=== PATIENT | female | born 1960 | race Caucasian/White ===

== ENCOUNTER 2024-07-07 16:45 | Inpatient (IN) | payer OTHER ==
[2024-07-07 17:46] LABS: Absolute Basophils 0.1 K/uL (0-0.5); Absolute Eosinophils 0.2 K/uL (0-0.5); Absolute Lymphocytes (CBC) 2.1 K/uL (0.7-4.9); Absolute Monocytes 0.5 K/uL (0.1-1.3); Absolute Neutrophil 5.3 K/uL (1.8-8.0); Basophils % 0.6 % (0-1.3); Hematocrit 17.3 % (36.0-45.0); Lymphocytes % 25.7 % (15.3-44.8); MCHC 27.8 g/dL (32.0-36.0); MCV 53.9 fL (80-100); MPV 8.3 fL (7.6-11.3); Monocytes % 6.5 % (3.3-12.3); Neutrophils % 65.2 % (41.7-73.7); Nucleated Red Blood Cells % 0.2 % (0-0); Platelets 432 thou/uL (152-406); RBC Red Blood Cell Count 3.21 M/uL (3.86-4.86); Red Cell Distribution Width 21.2 % (12.1-15.2)
[2024-07-07 17:49] LABS: PT Prothrombin Time 11.6 SECONDS (9.4-12.5); Protime INR 1.11
[2024-07-07 17:50] LABS: Hemoglobin 4.8 g/dL (12.0-15.0)
[2024-07-07 18:02] LABS: ALT/SGPT 19 U/L (13-56); Albumin 3.4 g/dL (3.4-5.0); Albumin/Globulin Ratio 0.9 (1.1-1.8); Alkaline Phosphatase 106 U/L (45-117); Anion Gap 10.7 mEq/L (5.0-15.0); BUN Blood Urea Nitrogen 14 mg/dL (7-18); Bicarbonate 25 mEq/L (21-32); Bilirubin Total 0.4 mg/dL (0.2-1.0); Globulin 3.7 g/dL (2.3-3.5); Glomerular Filtration Rate 66 ml/min (=/>90); Glucose Level 105 mg/dL (74-106); NT PRO-BNP 89 pg/mL (<125); Potassium 3.7 mEq/L (3.5-5.1); Protein, Total 7.1 g/dL (6.4-8.2); Sodium Level 137 mEq/L (136-145); Troponin High Sensitivity 5.1 pg/mL (<58.9)
[2024-07-07 18:05] LABS: AST/SGOT < 10 U/L (15-37); Bilirubin Direct < 0.2 mg/dL (0-0.2); Bilirubin Indirect, Calculated 0.2 mg/dL (0.2-0.8)
[2024-07-07 18:58] LABS: Anisocytosis 1+; Blood Morphology Comment NOTED (NOT SEEN); Hypochromasia 3+; Microcytosis 3+; Platelet Estimate INCR; White Blood Cell Scan OK (OK)
[2024-07-07] MEDS ORDERED: NA CHLORIDE 0.9% 250 ML ONE (19:00)
[2024-07-08] MEDS ORDERED: NA CHLORIDE 0.9% 100 ML ONE ×2 (01:11→06:41)
[2024-07-08] MEDS ORDERED: ACETAMINOPHEN 500 MG TAB ONE (02:48)
[2024-07-08 03:57] LABS: Hematocrit 21.7 % (36.0-45.0); Hemoglobin 6.6 g/dL (12.0-15.0); MCHC 30.4 g/dL (32.0-36.0); MCV 62.7 fL (80-100); MPV 8.9 fL (7.6-11.3); Platelets 360 thou/uL (152-406); RBC Red Blood Cell Count 3.46 M/uL (3.86-4.86); Red Cell Distribution Width 32.9 % (12.1-15.2)
--- NOTE | 2024-07-08 08:37 | ER ---
Nurse's Notes [facility] Name: Aurora Hutson Age: 63 yrs Sex: Female : 1960 Arrival Date: 07/07/2024 Time: 16:45 Bed 17 Private MD: Diagnosis: Anemia, unspecified;Ankylosing spondylitis of unspecified sites in spine Presentation: 07/07 17:00 Chief complaint: Patient states: Fatigue since just before Boris. Abnormal HGB 5, ll1 sent in for further evaluation. Episodes of near syncope also. Coronavirus screen: Client denies travel out of the [place] in the last 14 days. At this time, the client does not indicate any symptoms associated with coronavirus-19. Ebola Screen: Patient denies travel to an Ebola-affected area in the 21 days before illness onset. Initial Sepsis Screen: Does the patient meet any 2 criteria? No. Patient's initial sepsis screen is negative. Does the patient have a suspected source of infection? No. Patient's initial sepsis screen is negative. Risk Assessment: Do you want to hurt yourself or someone else? Patient reports no desire to harm self or others. Onset of symptoms was May 29, 2024. 17:00 Method Of Arrival: Ambulatory ll1 17:00 Acuity: FLORA 2 ll1 Triage Assessment: 17:00 General: Appears uncomfortable, Behavior is calm, cooperative, appropriate for age, ll1 Reports fatigue for. Pain: Denies pain. Neuro: Reports weakness low HGB. Historical: - Allergies: 17:02 No Known Allergies; ll1 - Home Meds: 07/08 09:23 Aleve 220 mg Oral tablet Unknown amount daily for ankylosing spondylitis [Active]; bo1 - PMHx: 07/07 17:02 Hypertensive disorder; ll1 - PSHx: 17:02 hysterectomy; Cholecystectomy; ll1 - Immunization history:: Adult Immunizations up to date. - Infectious Disease History:: Denies. - Social history:: Smoking status: Patient denies any tobacco usage or history of. Screenin:00 [facility] ED Fall Risk Assessment (Adult) History of falling in the last 3 months, kj2 including since admission No falls in past 3 months (0 pts) Confusion or Disorientation No (0 pts) Intoxicated or Sedated No (0 pts) Impaired Gait No (0 pts) Mobility Assist Device Used No (0 pt) Altered Elimination No (0 pt) Score/Fall Risk Level 0 - 2 = Low Risk Maintained a safe environment, Hourly rounding (assess needs \T\ fall precautionary measures) done. Abuse screen: Denies threats or abuse. Denies injuries from another. Nutritional screening: No deficits noted. Tuberculosis screening: No symptoms or risk factors identified. Assessment: 18:00 General: Appears in no apparent distress. Behavior is calm, cooperative. Pain: Denies kj2 pain. Neuro: Level of Consciousness is awake, alert, obeys commands, Oriented to person, place, time, situation. Cardiovascular: Patient's skin is warm and dry. Respiratory: Airway is patent Respiratory effort is even, unlabored. GI: No deficits noted. : No signs and/or symptoms were reported regarding the genitourinary system. 19:00 Reassessment: Patient appears in no apparent distress at this time. Patient and/or kj2 family updated on plan of care and expected duration. Pain level reassessed. Patient is alert, oriented x 3, equal unlabored respirations, skin warm/dry/pink. 20:03 Reassessment: Patient appears in no apparent distress at this time. Patient and/or kj2 family updated on plan of care and expected duration. Pain level reassessed. Patient is alert, oriented x 3, equal unlabored respirations, skin warm/dry/pink. 20:17 Reassessment: blood transfusion started. kj2 21:17 Reassessment: Patient appears in no apparent distress at this time. Patient and/or kj2 family updated on plan of care and expected duration. Pain level reassessed. Patient is alert, oriented x 3, equal unlabored respirations, skin warm/dry/pink. 22:18 Reassessment: Patient appears in no apparent distress at this time. Patient and/or kj2 family updated on plan of care and expected duration. Pain level reassessed. Patient is alert, oriented x 3, equal unlabored respirations, skin warm/dry/pink. 23:21 Reassessment: Patient appears in no apparent distress at this time. Patient and/or kj2 family updated on plan of care and expected duration. Pain level reassessed. Patient is alert, oriented x 3, equal unlabored respirations, skin warm/dry/pink. 07/08 00:08 Reassessment: blood transfusion stopped at 1208. kj2 00:48 General: Appears in no apparent distress. comfortable, Behavior is calm, cooperative. al5 Pain: Denies pain. Neuro: Level of Consciousness is awake, alert, obeys commands, Oriented to person, place, time, situation. Cardiovascular: Capillary refill < 3 seconds Patient's skin is warm and dry. Respiratory: Airway is patent Respiratory effort is even, unlabored, Respiratory pattern is regular, symmetrical. GI: No signs and/or symptoms were reported involving the gastrointestinal system. : No signs and/or symptoms were reported regarding the genitourinary system. EENT: No signs and/or symptoms were reported regarding the EENT system. Derm: Skin is intact, is healthy with good turgor, Skin is pink, warm \T\ dry. normal. Musculoskeletal: No signs and/or symptoms reported regarding the musculoskeletal system. 01:25 Reassessment: Patient appears in no apparent distress at this time. No changes from al5 previously documented assessment. Patient and/or family updated on plan of care and expected duration. Pain level reassessed. Patient is alert, oriented x 3, equal unlabored respirations, skin warm/dry/pink. see blood transfusion flow sheet for vitals. 03:00 Reassessment: Patient appears in no apparent distress at this time. No changes from al5 previously documented assessment. Patient and/or family updated on plan of care and expected duration. Pain level reassessed. Patient is alert, oriented x 3, equal unlabored respirations, skin warm/dry/pink. states she still feels about the same as when she came in, MD at bedside and is aware. 04:15 Reassessment: Patient appears in no apparent distress at this time. No changes from al5 previously documented assessment. Patient and/or family updated on plan of care and expected duration. Pain level reassessed. Patient is alert, oriented x 3, equal unlabored respirations, skin warm/dry/pink. 06:26 Reassessment: Patient appears in no apparent distress at this time. No changes from al5 previously documented assessment. Patient and/or family updated on plan of care and expected duration. Pain level reassessed. Patient is alert, oriented x 3, equal unlabored respirations, skin warm/dry/pink. 07:00 Reassessment: please see blood transfusion record for further vitals. General: Appears kc6 in no apparent distress. comfortable, well groomed, well developed, Behavior is calm, cooperative, appropriate for age, Reports fatigue for >3 days. Pain: Denies pain. Neuro: Level of Consciousness is awake, alert, obeys commands, Oriented to person, place, time, situation, Appropriate for age. Cardiovascular: Denies chest pain, shortness of breath, Capillary refill < 3 seconds. Respiratory: Airway is patent Trachea midline Respiratory effort is even, unlabored, Respiratory pattern is regular, symmetrical. GI: No signs and/or symptoms were reported involving the gastrointestinal system. Patient currently denies bloody stool, hemorrhoids, rectal bleeding. : No signs and/or symptoms were reported regarding the genitourinary system. EENT: No signs and/or symptoms were reported regarding the EENT system. Derm: No signs and/or symptoms reported regarding the dermatologic system. Skin is intact, is healthy with good turgor, Skin is pale. Musculoskeletal: No signs and/or symptoms reported regarding the musculoskeletal system. Circulation, motion, and sensation intact. Range of motion: intact in all extremities. 08:28 Reassessment: Patient appears in no apparent distress at this time. No changes from kc6 previously documented assessment. Patient and/or family updated on plan of care and expected duration. Pain level reassessed. Patient is alert, oriented x 3, equal unlabored respirations, skin warm/dry/pink. GI: Reports nausea. 09:15 Reassessment: please see blood transfusion record for further vitals. kc6 09:28 Reassessment: Patient appears in no apparent distress at this time. No changes from kc6 previously documented assessment. Patient and/or family updated on plan of care and expected duration. Pain level reassessed. Patient is alert, oriented x 3, equal unlabored respirations, skin warm/dry/pink. 10:19 Reassessment: Patient appears in no apparent distress at this time. No changes from kc6 previously documented assessment. Patient and/or family updated on plan of care and expected duration. Pain level reassessed. Patient is alert, oriented x 3, equal unlabored respirations, skin warm/dry/pink. 11:39 Reassessment: Patient appears in no apparent distress at this time. No changes from kc6 previously documented assessment. Patient and/or family updated on plan of care and expected duration. Pain level reassessed. Patient is alert, oriented x 3, equal unlabored respirations, skin warm/dry/pink. 12:41 Reassessment: Patient appears in no apparent distress at this time. No changes from kc6 previously documented assessment. Patient and/or family updated on plan of care and expected duration. Pain level reassessed. Patient is alert, oriented x 3, equal unlabored respirations, skin warm/dry/pink. 14:00 Reassessment: Patient appears in no apparent distress at this time. Patient and/or kj2 family updated on plan of care and expected duration. Pain level reassessed. Patient is alert, oriented x 3, equal unlabored respirations, skin warm/dry/pink. Vital Signs: 07/07 17:00 BP 122 / 87; Pulse 89; Resp 18; Temp 97.5; Pulse Ox 98% ; Weight 99.79 kg; Height 5 ft. ll1 10 in. ; Pain 0/10; 19:00 BP 119 / 63; Pulse 79; Resp 18; Pulse Ox 100% on R/A; kj2 20:03 BP 141 / 79; Pulse 75; Resp 18; Pulse Ox 98% ; kj2 20:17 BP 130 / 60; Pulse 71; Resp 20; Temp 98.6; Pulse Ox 100% on R/A; kj2 20:23 BP 121 / 70; Pulse 73; Resp 20; Temp 98.6; Pulse Ox 100% on R/A; kj2 20:33 BP 128 / 66; Pulse 78; Resp 20; Temp 98.6; Pulse Ox 100% on R/A; kj2 20:48 BP 130 / 64; Pulse 76; Resp 20; Temp 98.3; Pulse Ox 99% on R/A; kj2 22:18 BP 128 / 79; Pulse 75; Resp 20; Temp 98.3; Pulse Ox 100% on R/A; kj2 23:01 BP 135 / 75; Pulse 87; Resp 20; Temp 98.5; Pulse Ox 99% ; kj2 02 00:08 BP 139 / 92; Pulse 78; Resp 20; Temp 98.4; Pulse Ox 100% on R/A; kj2 00:49 BP 128 / 67; Pulse 76; Resp 16; Pulse Ox 96% on R/A; al5 01:00 BP 111 / 62; Pulse 79; Resp 16; Pulse Ox 95% on R/A; al5 01:15 BP 133 / 67; Pulse 75; Resp 15; Pulse Ox 100% on R/A; al5 01:25 al5 03:15 BP 137 / 83; Pulse 70; Resp 16; Pulse Ox 96% on R/A; al5 03:30 BP 145 / 79; Pulse 75; Resp 16; Pulse Ox 98% on R/A; al5 04:00 BP 118 / 56; Pulse 70; Resp 15; Pulse Ox 96% on R/A; al5 04:30 BP 130 / 60; Pulse 70; Resp 17; Pulse Ox 96% on R/A; al5 05:00 BP 133 / 63; Pulse 66; Resp 14; Pulse Ox 98% on R/A; al5 05:30 BP 146 / 54; Pulse 72; Resp 15; Pulse Ox 96% on R/A; al5 06:00 BP 127 / 66; Pulse 70; Resp 15; Pulse Ox 98% on R/A; al5 06:30 BP 157 / 75; Pulse 72; Resp 17; Pulse Ox 98% on R/A; al5 06:55 al5 07:26 BP 119 / 58; Pulse 75; Resp 17 S; Pulse Ox 99% on R/A; kc6 08:28 BP 117 / 60; Pulse 87; Resp 16 S; Temp 98.7(O); Pulse Ox 98% on R/A; Pain 0/10; kc6 09:35 BP 148 / 88; Pulse 74; Resp 18 S; Pulse Ox 99% on R/A; kc6 11:39 BP 113 / 62; Pulse 72; Resp 16 S; Pulse Ox 97% on R/A; kc6 12:41 BP 104 / 83; Pulse 65; Resp 16 S; Pulse Ox 99% on R/A; kc6 13:30 BP 122 / 87; Pulse 89; Resp 18; Temp 97.5; Pulse Ox 98% on R/A; kj2 07/07 17:00 Body Mass Index 31.57 (99.79 kg, 177.8 cm) ll1 07/07 17:00 Pain Scale: Adult ll1 08:28 Pain Scale: Adult kc6 01:25 see blood transfusion flow sheet for vitals al5 06:55 see blood transfusion flow sheet for vitals al5 ED Course: 01/31 16:57 Patient arrived in ED. ra3 17:00 Pawan Mg MD is Attending Physician. sp3 17:02 Triage completed. ll1 17:03 Arm band placed on. ll1 18:15 Meryl Montes RN is Primary Nurse. kj2 18:18 Patient has correct armband on for positive identification. Bed in low position. Call kj2 light in reach. Provided Education on: call light. 18:18 No provider procedures requiring assistance completed. kj2 20:27 Attending Physician role handed off by Pawan Mg MD bo1 20:27 Anurag Mehta MD is Attending Physician. bo1 20:46 Bb Add On Sent. kj2 07/08 00:22 Report given to Malu Ahmadi RN. kj2 07:00 Report received from Malu Lopez RN. kc6 07:00 deputy director of nursing on. Pulse ox on. NIBP on. Door closed. Noise minimized. Lights dimmed. kc6 Warm blanket given. Pillow given. 07:00 Patient maintains SpO2 saturation greater than 95% on room air. kc6 07:00 Inserted saline lock: 20 gauge in right antecubital area, using aseptic technique. kc6 Flushed with 10 mL NS. 08:35 Kingston Martin MD is Hospitalizing Provider. bo1 14:00 Hematocrit Sent. kj2 14:15 Patient admitted, IV remains in place. kj2 Administered Medications: 02:52 Drug: Acetaminophen PO 1000 mg PO once Route: PO; al5 05:41 Follow up: Response: No adverse reaction; Pain is decreased dd2 08:57 Drug: Ondansetron IVP 8 mg IVP once; over 2 minutes Route: IVP; Site: right antecubital;kc6 09:34 Follow up: Response: No adverse reaction; Nausea is decreased; Vomiting decreased kc6 Medication: 07/07 18:17 VIS not applicable for this client. kj2 Outcome: 07/08 08:36 Decision to Hospitalize by Provider. bo1 14:15 Admitted to Med/surg accompanied by tech, via wheelchair, room 207, kj2 14:15 Condition: stable 14:15 Instructed on the need for admit, 14:16 Patient left the ED. kj2 Signatures: Ira Daly RN RN ll1 Pawan Mg MD MD sp3 Griselda Kim RN RN kc6 Elva Cortes ra3 Anurag Mehta MD MD bo1 Malu Aldana RN RN al5 Meryl Montes RN RN kj2 JOSE MONTGOMERY RN RN dd2 Corrections: (The following items were deleted from the chart) 07/07 17:04 17:00 Pulse 89bpm; Resp 18bpm; Pulse Ox 98%; Temp 97.5F; 99.79 kg; Height 5 ft. 10 in.; ll1 BMI: 31.5; Pain 0/10, Adult; ll1 07/08 03:19 03:15 BP 137 / 83; Pulse 70bpm; Resp 16bpm; Pulse Ox 94% RA; al5 al5
--- NOTE | 2024-07-08 08:37 | EDPHYS ---
Physician Documentation [facility] Name: Aurora Hutson Age: 63 yrs Sex: Female : 1960 Arrival Date: 07/07/2024 Time: 16:45 Bed 17 Private MD: ED Physician Anurag Mehta HPI: 07/07 18:12 This 63 yrs old Female presents to ER via Ambulatory with complaints of Abnormal Lab sp3 Results - Fatigue. 18:12 63-year-old female with history of hypertension, ankylosing spondylitis presents to the sp3 ED with chief complaint anemia sent from PCP Dr. Lira for blood transfusion. She has outpatient follow-up appointments already being set up. She denies any melena, dark stools, coffee-ground emesis, or bleeding in any other sites. She is not on any anticoagulants or any antiplatelet agents. Review of systems negative for headache, neck pain, chest pain, shortness of breath, abdominal pain, vomiting, diarrhea, syncope, near syncope or any other signs or symptoms on ROS at this time.. Historical: - Allergies: 17:02 No Known Allergies; ll1 - Home Meds: 07/08 09:23 Aleve 220 mg Oral tablet Unknown amount daily for ankylosing spondylitis [Active]; bo1 - PMHx: 07/07 17:02 Hypertensive disorder; ll1 - PSHx: 17:02 hysterectomy; Cholecystectomy; ll1 - Immunization history:: Adult Immunizations up to date. - Infectious Disease History:: Denies. - Social history:: Smoking status: Patient denies any tobacco usage or history of. ROS: 18:13 Eyes: Negative for injury, pain, redness, and discharge, ENT: Negative for injury, sp3 pain, and discharge, Neck: Negative for injury, pain, and swelling, Cardiovascular: Negative for chest pain, palpitations, and edema, Respiratory: Negative for shortness of breath, cough, wheezing, and pleuritic chest pain, Abdomen/GI: Negative for abdominal pain, nausea, vomiting, diarrhea, and constipation, Back: Negative for injury and pain, MS/Extremity: Negative for injury and deformity, Skin: Negative for injury, rash, and discoloration, Neuro: Negative for headache, weakness, numbness, tingling, and seizure, Psych: Negative for depression, anxiety, suicide ideation, homicidal ideation, and hallucinations, Allergy/Immunology: Negative for hives, rash, and allergies, Endocrine: Negative for neck swelling, polydipsia, polyuria, polyphagia, and marked weight changes, 18:13 All other systems are negative, 07/08 09:24 Abdomen/GI: Negative for black/tarry stool, bo1 Exam: 07/07 18:13 Constitutional: This is a well developed, well nourished patient who is awake, alert, sp3 and in no acute distress. Head/Face: Normocephalic, atraumatic. Eyes: Pupils equal round and reactive to light, extra-ocular motions intact. Lids and lashes normal. Conjunctiva and sclera are non-icteric and not injected. Cornea within normal limits. Periorbital areas with no swelling, redness, or edema. Neck: Trachea midline, no thyromegaly or masses palpated, and no cervical lymphadenopathy. Supple, full range of motion without nuchal rigidity, or vertebral point tenderness. No Meningismus. Chest/axilla: Normal chest wall appearance and motion. Nontender with no deformity. No lesions are appreciated. Cardiovascular: Regular rate and rhythm with a normal S1 and S2. No gallops, murmurs, or rubs. Normal PMI, no JVD. No pulse deficits. Respiratory: Lungs have equal breath sounds bilaterally, clear to auscultation and percussion. No rales, rhonchi or wheezes noted. No increased work of breathing, no retractions or nasal flaring. Abdomen/GI: Soft, non-tender, with normal bowel sounds. No distension or tympany. No guarding or rebound. No evidence of tenderness throughout. Back: No spinal tenderness. No costovertebral tenderness. Full range of motion. MS/ Extremity: Pulses equal, no cyanosis. Neurovascular intact. Full, normal range of motion. Neuro: Awake and alert, GCS 15, oriented to person, place, time, and situation. Cranial nerves II-XII grossly intact. Motor strength 5/5 in all extremities. Sensory grossly intact. Cerebellar exam normal. Normal gait. Psych: Awake, alert, with orientation to person, place and time. Behavior, mood, and affect are within normal limits. Skin: Skin pallor noted.. Vital Signs: 17:00 BP 122 / 87; Pulse 89; Resp 18; Temp 97.5; Pulse Ox 98% ; Weight 99.79 kg; Height 5 ft. ll1 10 in. ; Pain 0/10; 19:00 BP 119 / 63; Pulse 79; Resp 18; Pulse Ox 100% on R/A; kj2 20:03 BP 141 / 79; Pulse 75; Resp 18; Pulse Ox 98% ; kj2 20:17 BP 130 / 60; Pulse 71; Resp 20; Temp 98.6; Pulse Ox 100% on R/A; kj2 20:23 BP 121 / 70; Pulse 73; Resp 20; Temp 98.6; Pulse Ox 100% on R/A; kj2 20:33 BP 128 / 66; Pulse 78; Resp 20; Temp 98.6; Pulse Ox 100% on R/A; kj2 20:48 BP 130 / 64; Pulse 76; Resp 20; Temp 98.3; Pulse Ox 99% on R/A; kj2 22:18 BP 128 / 79; Pulse 75; Resp 20; Temp 98.3; Pulse Ox 100% on R/A; kj2 23:01 BP 135 / 75; Pulse 87; Resp 20; Temp 98.5; Pulse Ox 99% ; kj2 02/01 00:08 BP 139 / 92; Pulse 78; Resp 20; Temp 98.4; Pulse Ox 100% on R/A; kj2 00:49 BP 128 / 67; Pulse 76; Resp 16; Pulse Ox 96% on R/A; al5 01:00 BP 111 / 62; Pulse 79; Resp 16; Pulse Ox 95% on R/A; al5 01:15 BP 133 / 67; Pulse 75; Resp 15; Pulse Ox 100% on R/A; al5 01:25 al5 03:15 BP 137 / 83; Pulse 70; Resp 16; Pulse Ox 96% on R/A; al5 03:30 BP 145 / 79; Pulse 75; Resp 16; Pulse Ox 98% on R/A; al5 04:00 BP 118 / 56; Pulse 70; Resp 15; Pulse Ox 96% on R/A; al5 04:30 BP 130 / 60; Pulse 70; Resp 17; Pulse Ox 96% on R/A; al5 05:00 BP 133 / 63; Pulse 66; Resp 14; Pulse Ox 98% on R/A; al5 05:30 BP 146 / 54; Pulse 72; Resp 15; Pulse Ox 96% on R/A; al5 06:00 BP 127 / 66; Pulse 70; Resp 15; Pulse Ox 98% on R/A; al5 06:30 BP 157 / 75; Pulse 72; Resp 17; Pulse Ox 98% on R/A; al5 06:55 al5 07:26 BP 119 / 58; Pulse 75; Resp 17 S; Pulse Ox 99% on R/A; kc6 08:28 BP 117 / 60; Pulse 87; Resp 16 S; Temp 98.7(O); Pulse Ox 98% on R/A; Pain 0/10; kc6 09:35 BP 148 / 88; Pulse 74; Resp 18 S; Pulse Ox 99% on R/A; kc6 11:39 BP 113 / 62; Pulse 72; Resp 16 S; Pulse Ox 97% on R/A; kc6 12:41 BP 104 / 83; Pulse 65; Resp 16 S; Pulse Ox 99% on R/A; kc6 13:30 BP 122 / 87; Pulse 89; Resp 18; Temp 97.5; Pulse Ox 98% on R/A; kj2 07/07 17:00 Body Mass Index 31.57 (99.79 kg, 177.8 cm) ll1 07/07 17:00 Pain Scale: Adult ll1 08:28 Pain Scale: Adult kc6 01:25 see blood transfusion flow sheet for vitals al5 06:55 see blood transfusion flow sheet for vitals al5 MDM: 07/07 17:00 Medical Screening Exam initiated sp3 18:14 Data reviewed: vital signs, nurses notes, old medical records, lab test result(s). ED sp3 course: 63-year-old female with anemia without signs or symptoms of GI bleed. Hemoglobin 4.8 in the ED. We will transfuse 2 units PRBCs and check other labs. Vital signs are currently normal. Patient has follow-up with GI already scheduled. Clinically I have ruled out acute GI bleed.. 07/08 09:21 Consideration of Admission/Observation Patient was admitted/placed on observation. bo1 Management of patient was discussed with the following: Hospitalist: Dr Mario MUNIZ. I considered the following discharge prescriptions or medication management in the emergency department Medications were administered in the Emergency Department. See MAR. Awaiting: labs results, Completion of 3rd unit of PRBCs being transfused. 07/07 17:17 Order name: Type And Screen 3 07/07 17:17 Order name: Basic Metabolic Panel; Complete Time: 20:18 [facility] 07/07 17:17 Order name: CBC with Diff; Complete Time: 20:18 3 07/07 17:17 Order name: LFT's; Complete Time: 20:18 [facility] 07/07 17:17 Order name: Magnesium; Complete Time: 20:18 [facility] 07/07 17:17 Order name: NT PRO-BNP; Complete Time: 20:18 3 07/07 17:17 Order name: PT-INR; Complete Time: 20:18 [facility] 07/07 17:17 Order name: Troponin HS; Complete Time: 20:18 [facility] 07/07 17:23 Order name: Bb Add On hb 07/07 17:59 Order name: Packed RBC Leukored [facility] 07/07 18:43 Order name: ABO/RH no charge; Complete Time: 20:18 [facility] 07/07 18:58 Order name: CBC Smear Scan; Complete Time: 20:18 [facility] 07/08 03:26 Order name: CBC w/o diff; Complete Time: 04:44 bo1 07/08 05:07 Order name: Fresh Frozen Plasma [facility] 07/08 05:07 Order name: Packed RBCs (Additional Unit) [facility] 07/08 13:19 Order name: C-Reactive Protein [facility] 07/08 13:19 Order name: Magnesium [facility] 07/08 13:19 Order name: Thyroid Stimulating Hormone [facility] 07/08 13:19 Order name: Hematocrit [facility] 07/08 13:19 Order name: Hematocrit [facility] 07/08 13:19 Order name: Hematocrit [facility] 07/08 13:19 Order name: Hematocrit [facility] 07/08 13:19 Order name: Hematocrit [facility] 07/08 13:19 Order name: Hematocrit [facility] 07/08 13:19 Order name: Hematocrit [facility] 07/08 13:19 Order name: CONS Physician Consult [facility] 07/07 17:17 Order name: Cardiac monitoring; Complete Time: 19:11 3 07/07 17:17 Order name: EKG - Nurse/Tech; Complete Time: 19:11 3 07/07 17:17 Order name: IV Saline Lock; Complete Time: 19:11 3 07/07 17:17 Order name: Labs collected and sent; Complete Time: 20:46 3 07/07 17:17 Order name: O2 Per Protocol; Complete Time: 20:46 3 07/07 17:17 Order name: O2 Sat Monitoring; Complete Time: 20:46 3 07/07 17:17 Order name: Transfuse; Complete Time: 20:46 3 07/08 04:50 Order name: Transfuse; Complete Time: 07:06 bo1 Administered Medications: 02:52 Drug: Acetaminophen PO 1000 mg PO once Route: PO; al5 05:41 Follow up: Response: No adverse reaction; Pain is decreased dd2 08:57 Drug: Ondansetron IVP 8 mg IVP once; over 2 minutes Route: IVP; Site: right antecubital;kc6 09:34 Follow up: Response: No adverse reaction; Nausea is decreased; Vomiting decreased kc6 Disposition Summary: 07/08/24 08:36 Hospitalization Ordered Notes: Hospitalization Status: Observation bo1 Provider: Kingston Martin Location: Telemetry/MedSurg (observation) bo1 Condition: Fair bo1 Problem: new bo1 Symptoms: have improved bo1 Bed/Room Type: Standard bo1 Room Assignment: 207(07/08/24 13:32) eb Diagnosis - Anemia, unspecified bo1 - Ankylosing spondylitis of unspecified sites in spine bo1 Forms: - Medication Reconciliation Form bo1 - SBAR form bo1 - Leadership Thank You Letter bo1 Signatures: Dispatcher [employer] EDMS Angi Greene Lynsay RN RN ll1 Pawan Mg MD MD sp3 Griselda Kim RN RN kc6 Anurag Mehta MD MD bo1 Malu Aldana RN RN al5 JOSE MONTGOMERY RN dd2 Corrections: (The following items were deleted from the chart) 07/07 17:18 17:18 BASIC METABOLIC PANEL+C.LAB.BRZ ordered. EDMS EDMS 17:18 17:18 CBC+H.LAB.BRZ ordered. EDMS EDMS 17:18 17:18 HEPATIC FUNCTION+C.LAB.BRZ ordered. EDMS EDMS 17:18 17:18 MAGNESIUM+C.LAB.BRZ ordered. EDMS EDMS 17:18 17:18 PROBNP+C.LAB.BRZ ordered. EDMS EDMS 17:18 17:18 PROTIME (+INR)+COAG.LAB.BRZ ordered. EDMS EDMS 17:18 17:18 Troponin High Sensitivity+C.LAB.BRZ ordered. EDMS EDMS 17:18 17:18 TYPE AND SCREEN+BB.LAB.BRZ ordered. EDMS EDMS 21:26 17:18 PACKED RBC LEUKORED+BB.LAB.BRZ ordered. EDMS EDMS 21:26 17:20 ABO/RH typing ordered. EDMS EDMS 21:26 17:20 Antibody Screen ordered. EDMS EDMS 02 05:38 04:50 PACKED RBC LEUKORED+BB.LAB.BRZ ordered. EDMS EDMS 05:38 04:53 ABO/RH typing ordered. EDMS EDMS 05:38 04:53 Antibody Screen ordered. EDMS EDMS 13:23 08:36 bo1 eb 13:32 13:23 210 eb eb
[2024-07-08] MEDS ORDERED: NA CHLORIDE 0.9% 250 ML ONE (08:47)
[2024-07-08] MEDS ORDERED: ONDANSETRON 4 MG/2 ML VIAL ONE (08:54)
[2024-07-08] MEDS ORDERED: HYDROMORPHONE HCL 0.5 MG/0.5 ML INJ IV PRN (13:10)
[2024-07-08] MEDS ORDERED: HYDROCODONE/APAP 10/325 TAB PO PRN (13:11)
--- NOTE | 2024-07-08 13:23 | P.HP ---
Certification for Inpatient Patient admitted to: Observation With expected LOS: <2 Midnights Patient will require the following post-hospital care: None Practitioner: I am a practitioner with admitting privileges, knowledge of patient current condition, hospital course, and medical plan of care. Services: Services provided to patient in accordance with Admission requirements found in Title 42 Section 412.3 of the Code of Federal Regulations Patient History Date of Service: 07/08/24 Primary Care Provider: Cody Lira Reason for admission: symptomatic anemia History of Present Illness: Patient is a pleasant young woman with a 10 year history of Ankylosing Spondylitis. She also has htn, depression and fibromyalgia. She treats her back pain with aleve 200mg a day. her pain at night is about 7/10. Aleve brings it down to 5/10. She has been feeling weak and tried for the past 5 weeks. Went to her pcp and had outpatient labs. Was sent to the ER for anemia. Was found to have a HB of 4.8. Recieved 3 units and fresh frozen plasma. She has no reported melana or hematachezia. She had no abdominal pain. Allergies NKDA Allergy (Uncoded 07/04/15 19:06) Unknown Review of Systems 10-point ROS is otherwise unremarkable General: Weakness, Malaise Physical Examination - Physical Exam General: Alert, In no apparent distress HEENT: Atraumatic, PERRLA, Mucous membr. moist/pink, EOMI, Sclerae nonicteric Neck: Supple, 2+ carotid pulse no bruit, No LAD, Without JVD or thyroid abnormality Respiratory: Clear to auscultation bilaterally, Normal air movement Cardiovascular: Regular rate/rhythm, Normal S1 S2 Gastrointestinal: Normal bowel sounds, No tenderness Musculoskeletal: No tenderness Integumentary: No rashes Neurological: Normal gait, Normal speech, Normal strength at 5/5 x4 extr, Normal tone, Normal affect Lymphatics: No axilla or inguinal lymphadenopathy - Studies Laboratory Data (last 24 hrs) 07/08/24 07/07/24 07/07/24 03:32 17:32 17:32 WBC 8.00 8.10 Hgb 6.6 L D 4.8 L* Hct 21.7 L 17.3 L Plt Count 360 432 H PT 11.6 INR 1.11 Sodium Potassium BUN Creatinine Glucose Magnesium Total Bilirubin AST ALT Alkaline Phosphatase 07/07/24 17:32 WBC Hgb Hct Plt Count PT INR Sodium 137 Potassium 3.7 BUN 14 Creatinine 0.96 Glucose 105 Magnesium 2.0 Total Bilirubin 0.4 AST < 10 L ALT 19 Alkaline Phosphatase 106 Assessment and Plan - Problems (Diagnosis) (1) Acute GI bleeding Current Visit: Yes Status: Acute Plan: possible due to nsaid use. Will start her on protonix. discussed the patient with Dr. Jang. Possible EGD in the morning. Will transfuse her till hb is above 7. Will then monitor serial hct. (2) Ankylosing spondylitis of site in spine Current Visit: Yes Status: Chronic Plan: She has never had any treatment other than NSAIDs. Was diagnoised 10 years ago. Have discussed using DMARDs or biological. Gave the name and address of [facility] here in [facility]. She should be seen by rheumatology to avoid future disability. Also to decrease need for NSAIDs. (3) Essential (primary) hypertension Current Visit: Yes Status: Chronic Plan: Has been out of her benazpril 20mg qday Currently hypotensive. Will hold the med for now. Will restart it if she needs to (4) Depression, unspecified Current Visit: Yes Status: Chronic Plan: restart her home venlafexine Qualifiers: Depression Type: other depression Qualified Code(s): F32.89 - Other specified depressive episodes Discharge Plan: Home Plan to discharge in: 24 Hours - Advance Directives Does patient have a Living Will: No Does patient have a Durable POA for Healthcare: No - Code Status/Comfort Care Code Status Assessed: Yes Code Status: Full Code Physician Review: Patient Assessed, Agree with Above Assessment and Plan Critical Care: No Time Spent Managing Pts Care (In Minutes): 50
[2024-07-08 14:55] VITALS: BP 166/90; TEMP 98.2
[2024-07-08 14:59] VITALS: O2SAT 98; BMI 31.5
[2024-07-08] MEDS: ENOXAPARIN 40 MG/0.4 ML SQ SCH (17:00)
--- NOTE | 2024-07-08 18:51 | CON ---
Date of Consultation: 07/08/2024 Brief History Of Present Illness: The patient is a 63-year-old woman with a 10-year history of ankyl osing spondylitis who has hypertension, depression, and fibromyalgia. She takes Aleve every day, alberto roximately 6 to 10 pills per week on average due to her ankylosing spondylitis, which she does not ta ke any prescription medication for at this point. She has had some weakness, fatigue and ultimately went to see her medical doctor who ordered a series of blood work and her hemoglobin came back as 4.8 , and as such, she was advised to come to the emergency room to initiate transfusions. She had recei thompson 3 units of packed red blood cells and 1 unit of FFP and feels significantly better. However, she only had minimal symptoms of weakness and fatigue. She states she has never had any episodes of gas trointestinal bleeding. No dark stool. No change in her bowel or bladder habits. No vomiting of bl ood. She does not have any issues with pallor, tachycardia, chest pain, dizziness, lightheadedness, or any other orthostatic symptoms whatsoever. So, she was advised simply to come to the emergency ro om due to her general sort of low-grade weakness and the diagnosis of a low hemoglobin on blood test. She does believe that she was advised in the past to take supplementation for a lower blood count i n the past. She states she took B12, folate and was given iron in the past. She had difficulty swal lowing iron pills and had received an iron infusion; however, she had not followed up with that going watermelon inspector, and as such, she attempts to get iron from her meals predominantly and has not taken any additional iron transfusions. Currently, she feels well. She has no symptoms of dizziness, lighthea dedness, chest pain, shortness of breath, abdominal pain. No gastrointestinal bleeding evidence. Tianna buenrostro has not had a colonoscopy in over 14 years. Past Medical History: Significant for ankylosing spondylitis, hypertension, depression, fibromyalgia , reflux, GERD. Past Surgical History: She has had a fundoplication in the past. Social History: She denies smoking, alcohol, or recreational drug use. Review of Systems: 10-point review of systems other than HPI denies. Allergies: NO KNOWN DRUG ALLERGIES. Medications: As described. Physical Examination: General: She is awake, alert, and oriented. Psychiatric: She is appropriate, conversive. HEENT: She is normocephalic. Her sclerae are anicteric. Her mucous membranes are moist. Her oroph arynx is clear. Neck: Supple without JVD. Chest: Normal expansion and excursion. Cardiovascular: Regular rate and rhythm. Pulmonary: Clear to auscultation bilaterally. Abdomen: Soft, nontender. Extremities: No clubbing, cyanosis, edema. Skin: Warm and dry. Laboratory Data: She had a laboratory exam, which reveals a white blood count of 8.1, hemoglobin is 6.6 after transfusion over hematocrit of 26.7. Her platelet count is 432 on admission. PT 11.6, INR 1.11. Sodium 137, potassium 3.7, chloride 105, carbon dioxide 25, BUN 14, creatinine 0.96, glucose 105, calcium 8.6, magnesium 2.0, total bilirubin 0.4, AST is less than 10, ALT 19, alkaline phosphata se 106. Her troponin was 5.1 in the normal range. The remainder of her examination was u nremarkable. Some tests are currently pending, however. Assessment And Plan: This is a 63-year-old woman who comes in with anemia of uncertain etiology with out evidence of gastrointestinal bleed. 1. Continue transfusion of products to achieve hemoglobin greater than 7.0 or based on symptomatic im provement. 2. I recommend the patient to have upper endoscopy and colonoscopy on a nonemergent basis. 3. Continue workup for her anemia as an outpatient recommended unless she has evidence of gastrointes tinal bleeding that occurs while being observed. I have explained the risks, benefits, and alternati ves of the above stated plan. The patient agrees to proceed as indicated. Thank you for this interesting consult. MICHAEL/RIGO Voice ID: [id number] Report ID: [id number]
[2024-07-09] MEDS ORDERED: PANTOPRAZOLE 40MG TABLET PO SCH (07:30)
[2024-07-09] MEDS ORDERED: VENLAFAXINE HCL 75 MG TABLET PO SCH (09:00)
--- NOTE | 2024-07-09 14:27 | P.DS ---
Admission Date: 07/08/24 Discharge Date: 07/09/24 Primary Care Provider: Cody Lira Disposition: ROUTINE DISCHARGE Discharge Condition: GOOD Reason for Admission: symptomatic anemia - Problems (1) Acute GI bleeding Status: Acute (2) Ankylosing spondylitis of site in spine Status: Chronic (3) Essential (primary) hypertension Status: Chronic (4) Depression, unspecified Status: Chronic Qualifiers: Depression Type: other depression Qualified Code(s): F32.89 - Other specified depressive episodes Brief History of Present Illness: Patient is a pleasant young woman with a 10 year history of Ankylosing Spondylitis. She also has htn, depression and fibromyalgia. She treats her back pain with aleve 200mg a day. her pain at night is about 7/10. Aleve brings it down to 5/10. She has been feeling weak and tried for the past 5 weeks. Went to her pcp and had outpatient labs. Was sent to the ER for anemia. Was found to have a HB of 4.8. Recieved 3 units and fresh frozen plasma. She has no reported melana or hematachezia. She had no abdominal pain. Hospital Course: Patient had a repeat HB of 8.1 She was requesting to go home. She had some issues with obtaining life insurance. Hopefully she will follow up with Dr. Lira and be referred to GI as discussed. I have also provided them the contact info for [facility] Vital Signs/Physical Exam: Temp Pulse Resp BP Pulse Ox 98.2 F 72 18 166/90 H 98 07/08/24 16:00 07/08/24 16:00 07/08/24 16:00 07/08/24 16:00 07/08/24 16:00 General: Alert, In no apparent distress HEENT: Atraumatic, PERRLA, EOMI Neck: Supple, JVD not distended Respiratory: Clear to auscultation bilaterally, Normal air movement Cardiovascular: Regular rate/rhythm, Normal S1 S2 Gastrointestinal: Normal bowel sounds, No tenderness Musculoskeletal: No tenderness Integumentary: No rashes Neurological: Normal speech, Normal tone, Normal affect Lymphatics: No axilla or inguinal lymphadenopathy Laboratory Data at Discharge: WBC 8.00 thou/uL (4.3-10.9) 07/08/24 03:32 Hgb 8.1 g/dL (12.0-15.0) L D 07/08/24 17:32 Hct 26.6 % (36.0-45.0) L 07/08/24 13:58 Plt Count 360 thou/uL (152-406) 07/08/24 03:32 PT 11.6 SECONDS (9.4-12.5) 07/07/24 17:32 INR 1.11 07/07/24 17:32 Sodium 137 mEq/L (136-145) 07/07/24 17:32 Potassium 3.7 mEq/L (3.5-5.1) 07/07/24 17:32 BUN 14 mg/dL (7-18) 07/07/24 17:32 Creatinine 0.96 mg/dL (0.55-1.02) 07/07/24 17:32 Glucose 105 mg/dL (74-106) 07/07/24 17:32 Magnesium 2.0 mg/dL (1.6-2.4) 07/07/24 17:32 Total Bilirubin 0.4 mg/dL (0.2-1.0) 07/07/24 17:32 AST < 10 U/L (15-37) L 07/07/24 17:32 ALT 19 U/L (13-56) 07/07/24 17:32 Alkaline Phosphatase 106 U/L (45-117) 07/07/24 17:32 Home Medications: ALPRAZolam [Xanax*] 0.5 mg PO DAILY 07/08/24 Benazepril HCl 20 mg PO DAILY 07/08/24 Cyclobenzaprine [Flexeril*] 1 tab PO DAILY 07/08/24 Venlafaxine HCl *Xr* [Effexor XR] 1 cap PO DAILY 07/08/24 Zolpidem Tartrate 1 tab PO BEDTIME 07/08/24 Diet: [place] Activity: Ad damaris Followup: Jose Jang MD [ACTIVE - CAN ADMIT] - Beka Lira MD [Primary Care Provider] - Time spent managing pt's care (in minutes): 30
--- NOTE | 2024-07-11 12:25 | EKG ---
Test Date: 2024-07-07 Test Time: 19:09:01 Church Organist: VINNY MEASUREMENT RESULTS: Intervals: Rate: 81 [place]: 170 QRSD: 88 QT: 400 QTc: 464 [place]: P: 74 [place]: 170 QRS: 51 T: 47 INTERPRETIVE STATEMENTS: Normal sinus rhythm Low voltage QRS Borderline ECG No previous ECG available for comparison Electronically Signed On 07-11-24 12:19:28 WAREHOUSE EXAMINER by Deondre Campbell
== END 2024-07-08 18:55 | disposition home or self-care (01) | DRG 812 ==
LOC: ER 16:45 → ERHOLD 07-08 13:09 → 2ND 07-08 13:52
PROVIDERS: ADMIT Internal Medicine; ATTEND Internal Medicine
PROC: 30233N1 Transfusion of Nonautologous Red Blood Cells into Peripheral Vein, Percutaneous Approach (ICD-10-PCS; principal; 2024-07-07)
PROC: 30233K1 Transfusion of Nonautologous Frozen Plasma into Peripheral Vein, Percutaneous Approach (ICD-10-PCS; 2024-07-08)
DX: D64.9 Anemia, unspecified (principal); K92.2 Gastrointestinal hemorrhage, unspecified; I95.9 Hypotension, unspecified; I10 Essential (primary) hypertension; F32.89 Other specified depressive episodes; M45.9 Ankylosing spondylitis of unspecified sites in spine; M79.7 Fibromyalgia; K21.9 Gastro-esophageal reflux disease without esophagitis; M54.9 Dorsalgia, unspecified; T39.395A Adverse effect of other nonsteroidal anti-inflammatory drugs [NSAID], initial encounter; Z90.49 Acquired absence of other specified parts of digestive tract; Z90.710 Acquired absence of both cervix and uterus
CPT/HCPCS: 36415; 80048; 80076; 83735; 83880; 84484; 85014; 85018; 85025; 85027; 85610; 86850; 86900; 86901; 86920; 93005; 96374; 99285; J2405; J7050; P9016; P9059

== ENCOUNTER 2025-01-24 05:27 | Day surgery (SDC) | payer OTHER ==
[2025-01-22 10:34] LABS: Anion Gap 6.6 mEq/L (5.0-15.0); BUN Blood Urea Nitrogen 19.0 mg/dL (7-18); Glucose Level 94.0 mg/dL (74-106); Potassium 4.6 mEq/L (3.5-5.1)
[2025-01-24] MEDS ORDERED: FENTANYL CITR 100 MCG/2 ML ONE (05:51)
[2025-01-24] MEDS ORDERED: LIDOCAINE 1% MPF 5 ML VIAL ONE (05:51)
[2025-01-24] MEDS ORDERED: BUPIVACAINE 0.5% PF 10 ML VIAL ONE (05:51)
[2025-01-24] MEDS ORDERED: MIDAZOLAM HCL 2 MG/2 ML INJ ONE ×2 (05:51→06:32)
[2025-01-24] MEDS ORDERED: EPINEPHRINE 1 MG/ML VIAL ONE (05:52)
[2025-01-24] MEDS ORDERED: LIDOCAINE 1% 20 ML MDV ONE (06:41)
[2025-01-24] MEDS: Ringers Lactate 1,000 ML IV ONE (06:44)
[2025-01-24] MEDS ORDERED: LIDOCAINE 2% MPF 5 ML VIAL ONE (07:09)
[2025-01-24] MEDS ORDERED: KETOROLAC 30 MG/ML INJ ONE (07:09)
[2025-01-24] MEDS ORDERED: ONDANSETRON 4 MG/2 ML VIAL ONE (07:09)
[2025-01-24] MEDS ORDERED: CEFAZOLIN SODIUM 2 GM/VIAL ONE (07:15)
[2025-01-24] MEDS ORDERED: NS 0.9% VIAL 20 ML ONE (07:38)
[2025-01-24] MEDS: BUPIVACAINE 0.5% PF 10 ML VIAL ONE (08:27)
--- NOTE | 2025-01-24 11:11 | RAD REPORT ---
EXAM: Fluoroscopy use, Fluoroscopy <1 Hour HISTORY: LT FOOT 1ST METATARSAL EXOSTECTOMY, TALUS EXOSTECTOMY COMPARISON: None FINDINGS: A total of 6 images were sent to PACS, during a fluoroscopically guided foot surgery. No ra diologist was involved in protocoling or performance of the study, and no radiologist was present for the duration of the procedure. No interpretation of the saved images will be provided. Total fluoroscopy time: 0.4 minutes. Cumulative dose: 0.354 mGy IMPRESSION: Documentation of fluoroscopy use as above.
[2025-01-24 11:46] VITALS: BP 150/80; TEMP 97.5; O2SAT 95
== END 2025-01-24 10:50 | disposition home or self-care (01) ==
LOC: OR 05:27
PROVIDERS: ATTEND Podiatrist Foot & Ankle Surgery
PROC: 0QBM0ZZ Excision of Left Tarsal, Open Approach (ICD-10-PCS; 2025-01-24)
PROC: 0QBP0ZZ Excision of Left Metatarsal, Open Approach (ICD-10-PCS; principal; 2025-01-24 07:00)
DX: M25.775 Osteophyte, left foot (principal); M79.672 Pain in left foot; M89.9 Disorder of bone, unspecified; I10 Essential (primary) hypertension; K21.9 Gastro-esophageal reflux disease without esophagitis; F32.A Depression, unspecified; D64.9 Anemia, unspecified; M47.899 Other spondylosis, site unspecified
CPT/HCPCS: 80048; 36415; 76000; 28122; 28119; A6456; A4216; J2704; J2003 ×2; J2250 ×2; J3010; J1100 ×2; J0171; J2405; J7120